=== PATIENT | female | born 1960 | race Caucasian/White ===

== ENCOUNTER 2016-07-30 09:46 | Emergency (ER) | payer MEDICAID ==
[~2016-07-30] VITALS: Ht 175.3 cm; Wt 59.0 kg
[2016-07-30 09:46] VITALS: BP 119/77; PULSE 93; RESP 19; TEMP 97.9; O2SAT 98
--- NOTE | 2016-07-30 09:50 | NUR ---
BROUGHT BACK TO BED #4 AND TRIAGED. REPORT GIVEN TO BETO
--- NOTE | 2016-07-30 10:02 | NUR ---
ER at bedside examining patient.
--- NOTE | 2016-07-30 10:03 | NUR ---
Pt presents to ED c/o R wrist 03/26 s/p mech fall.Pt h/o hypothyroid. Pt denies other med hx.Pt has reduced ROM.
[2016-07-30 11:00] VITALS: BP 117/75; PULSE 89; RESP 19; TEMP 97.9; O2SAT 98
--- NOTE | 2016-07-30 11:00 | NUR ---
Patient given written and verbal discharge instructions and verbalizes understanding. ER MD discussed with patient the results and treatment provided. Patient in stable condition. ID arm band removed. Rx of norco given. Patient educated on pain management and to follow up with PMD. Pain Scale 0/10. Opportunity for questions provided and answered.
== END 2016-07-30 11:00 | disposition home or self-care (01) ==
LOC: SED 09:46
DX: S83.91XA Sprain of unspecified site of right knee, initial encounter (principal); W19.XXXA Unspecified fall, initial encounter; Y93.89 Activity, other specified; Y92.89 Other specified places as the place of occurrence of the external cause; Y99.8 Other external cause status
CPT/HCPCS: 99284

== ENCOUNTER 2016-08-03 08:23 | Emergency (ER) | payer MEDICAID ==
[~2016-08-03] VITALS: Ht 175.3 cm; Wt 59.0 kg
[2016-08-03 09:02] VITALS: BP 126/87; PULSE 83; RESP 16; TEMP 97.3; O2SAT 95
--- NOTE | 2016-08-03 09:30 | NUR ---
Placed in room 4 . To gown for exam. Side rails up.
--- NOTE | 2016-08-03 09:40 | NUR ---
ER at bedside examining patient.
--- NOTE | 2016-08-03 09:49 | NUR ---
here for following and repeating xay of right wrist. right wrist mild swelling,tenderness.
--- NOTE | 2016-08-03 10:01 | NUR ---
Dr. Tavera at bedside, discussed chronic pain management, CURES report and that she has an appointment with PCP on Saturday. Patient agrees to have PCP manage her pain.
--- NOTE | 2016-08-03 10:15 | NUR ---
Patient given written and verbal discharge instructions and verbalizes understanding. ER MD discussed with patient the results and treatment provided. Given copies of tests performed in ER. Patient in stable condition. ID arm band removed. No Rx given, patient will follow with PCP. Patient educated on pain management and chronic opiod use. Pain Scale 5/10. Opportunity for questions provided and answered.
[2016-08-03 10:17] VITALS: BP 126/84; PULSE 77; RESP 16; TEMP 98; O2SAT 98
== END 2016-08-03 10:15 | disposition home or self-care (01) ==
LOC: SED 08:25
DX: S63.501A Unspecified sprain of right wrist, initial encounter (principal); W01.10XA Fall on same level from slipping, tripping and stumbling with subsequent striking against unspecified object, initial encounter; Y93.89 Activity, other specified; Y92.89 Other specified places as the place of occurrence of the external cause; Y99.8 Other external cause status
CPT/HCPCS: 99284

== ENCOUNTER 2017-05-15 21:17 | Emergency (ER) | payer MEDICAID ==
[~2017-05-15] VITALS: Ht 175.3 cm; Wt 59.0 kg
[2017-05-15 21:29] VITALS: BP_SYST 142
[2017-05-15 22:10] LABS: BASOPHILS % (AUTO) 0.8 % (0.0-2.0); EOSINOPHILS # (AUTO) 0.1 K/uL (0.0-0.4); EOSINOPHILS % (AUTO) 1.9 % (0.0-4.0); HEMOGLOBIN 13.7 g/dL (12.0-16.0); LYMPHOCYTES # (AUTO) 3.1 K/uL (1.0-5.5); LYMPHOCYTES % (AUTO) 50.2 % (20.5-51.5); MEAN CORPUSCULAR HEMOGLOBIN 33 pg (27-31); MEAN CORPUSCULAR HGB CONC 33 % (32-36); MEAN CORPUSCULAR VOLUME 102 fL (79.0-98.0); MONOCYTES # (AUTO) 0.4 K/uL (0.0-1.0); MONOCYTES % (AUTO) 6.2 % (1.7-9.3); NEUTROPHILS # (AUTO) 2.5 K/uL (1.8-7.7); NEUTROPHILS % (AUTO) 40.9 % (40.0-70.0); PLATELET COUNT (AUTO) 244 K/uL (130-430); RED CELL DISTRIBUTION WIDTH 13.5 % (9.0-15.0); WHITE BLOOD COUNT (AUTO) 6.1 K/uL (4.8-10.8)
[2017-05-15 22:17] LABS: CALCIUM 8.8 mg/dL (8.4-11.0); CREATININE 0.68 mg/dL (0.55-1.30); POTASSIUM 3.3 mmol/L (3.5-5.1)
[2017-05-15 22:23] LABS: ALBUMIN 4.6 g/dL (3.4-4.8); TOTAL BILIRUBIN 0.3 mg/dL (0.0-1.0)
[2017-05-15] MEDS ORDERED: FOLIC ACID 5 MG/ML VIAL IV ONE (22:33)
[2017-05-15] MEDS ORDERED: MVI 10 ML VIAL IV ONE ×2 (22:33→22:38)
[2017-05-15] MEDS ORDERED: THIAMINE HCL 100 MG/ML VIAL ONE (22:33)
[2017-05-15] MEDS ORDERED: MAGNESIUM SULFATE 1 GM/2 ML VIAL ONE (22:33)
[2017-05-15] MEDS: FOLIC ACID 1 MG, THIAMINE HCL 100 MG, MAGNESIUM SULFATE 1 GM, MVI 10 ML in NACL 0.9% 1,... IV ONE (22:47)
[2017-05-16] MEDS: KETOROLAC TROMETHAMINE 30 MG VIAL IVP ONE (00:20)
[2017-05-16] MEDS: NACL 0.9% 1,000 ML IV ONE (02:09)
[2017-05-16 02:11] VITALS: BP_SYST 136
== END 2017-05-16 02:15 | disposition left against medical advice (07) ==
LOC: SED 21:17
DX: F10.129 Alcohol abuse with intoxication, unspecified (principal); R03.0 Elevated blood-pressure reading, without diagnosis of hypertension; Z53.20 Procedure and treatment not carried out because of patient's decision for unspecified reasons; Y90.8 Blood alcohol level of 240 mg/100 ml or more
CPT/HCPCS: 36415; 80053; 85025; 96365; 96366; 96375; 99285; G0482; J1885; J3411; J3475; J3490; J7030 ×2

== ENCOUNTER 2017-09-14 20:35 | Inpatient (IN) | payer MEDICAID ==
[~2017-09-14] VITALS: Ht 167.6 cm; Wt 70.8 kg
[2017-09-14 20:40] VITALS: BP_SYST 114
[2017-09-14] MEDS ORDERED: NACL 0.9% 1,000 ML IV ONE (20:45)
[2017-09-14] MEDS ORDERED: THIAMINE HCL 100 MG TABLET PO ONE (21:00)
[2017-09-14] MEDS ORDERED: ONDANSETRON HCL 4 MG/2 ML VIAL IVP ONE (21:00)
[2017-09-14] MEDS ORDERED: FOLIC ACID 1 MG TABLET PO ONE (21:00)
[2017-09-14 21:53] LABS: BILIRUBIN,URINE NEGATIVE (NEGATIVE); BLOOD, URINE 1+ (NEGATIVE); CLARITY/URINE CLEAR (CLEAR); COLOR,URINE YELLOW (YELLOW); GLUCOSE,URINE NEGATIVE (NEGATIVE); KETONES,URINE NEGATIVE (NEGATIVE); LEUKOCYTE ESTERASE ,URINE NEGATIVE (NEGATIVE); NITRITE, URINE NEGATIVE (NEGATIVE); PH,URINE 5.5 (5.0-8.0); PROTEIN URINE NEGATIVE (NEGATIVE); UROBILINOGEN,URINE 0.2 (0.2-1.0)
[2017-09-14 22:02] LABS: HEMATOCRIT 35.9 % (36-48); HEMOGLOBIN 12.4 g/dL (12.0-16.0); MEAN CORPUSCULAR HEMOGLOBIN 35 pg (27-31); MEAN CORPUSCULAR HGB CONC 35 % (32-36); MEAN CORPUSCULAR VOLUME 101 fL (79.0-98.0); PLATELET COUNT (AUTO) 197 K/uL (130-430); RED BLOOD CELL COUNT(AUTO) 3.54 MIL/uL (4.2-6.2); RED CELL DISTRIBUTION WIDTH 13.4 % (9.0-15.0); WHITE BLOOD COUNT (AUTO) 4.6 K/uL (4.8-10.8)
[2017-09-14 22:02] LABS: BACTERIA,URINE RARE /HPF (None Seen); MUCUS,URINE None Seen /LPF (None Seen); RBC,URINE 0-3 /HPF (0-3); WBC,URINE NONE SEEN /HPF (0-3)
[2017-09-14 22:15] LABS: CALCIUM 8.1 mg/dL (8.4-11.0); CREATININE 0.59 mg/dL (0.55-1.30)
[2017-09-14 22:21] LABS: ALBUMIN 3.8 g/dL (3.4-4.8); TOTAL BILIRUBIN 0.1 mg/dL (0.0-1.0)
[2017-09-14] MEDS ORDERED: ZOLPIDEM TARTRATE 5 MG TABLET PO PRN (23:00)
[2017-09-14] MEDS ORDERED: FOLIC ACID 1 MG, THIAMINE HCL 100 MG, MAGNESIUM SULFATE 1 GM, MVI 10 ML in NACL 0.9% 1,... IV ONE (23:00)
[2017-09-14] MEDS ORDERED: DOCUSATE SODIUM 100 MG CAPSULE PO PRN (23:00)
[2017-09-14] MEDS ORDERED: ACETAMINOPHEN 325 MG TABLET PO PRN (23:00)
[2017-09-14] MEDS ORDERED: MAGNESIUM SULFATE 50 ML IV PRN (23:00)
[2017-09-14] MEDS ORDERED: MORPHINE 2 MG/ML INJ. SYRINGE IVP PRN ×2 (23:00)
[2017-09-14] MEDS ORDERED: MUPIROCIN 2% TOPICAL OINTMENT 22 GM NS PRN (23:00)
[2017-09-14] MEDS ORDERED: ONDANSETRON HCL 4 MG/2 ML VIAL IVP PRN (23:00)
[2017-09-14] MEDS ORDERED: POTASSIUM CHLORIDE 20 MEQ TAB.PRT.SR PO PRN (23:00)
[2017-09-14 23:01] LABS: ATYPICAL LYMPHOCYTES % 2 % (0-0); BAND % (MANUAL) 6 % (0-6); BASOPHILS % (MANUAL) 0 % (0-2); EOSINOPHILS % (MANUAL) 1 % (0-7); LYMPHOCYTES % (MANUAL) 51 % (20-46); MONOCYTES % (MANUAL) 10 % (0-11)
[2017-09-14 23:11] VITALS: BP_SYST 101
[2017-09-14 23:36] VITALS: BP_SYST 101
[2017-09-14] MEDS ORDERED: MUPIROCIN NASAL 2% OINT. 1 GM NS PRN (23:51)
[2017-09-15] MEDS ORDERED: MAGNESIUM SULFATE 1 GM/2 ML VIAL ONE (00:18)
[2017-09-15] MEDS ORDERED: FOLIC ACID 5 MG/ML VIAL IV ONE (00:18)
[2017-09-15] MEDS ORDERED: MVI 10 ML VIAL IV ONE (00:20)
[2017-09-15] MEDS: 0.45% NS 500 ML IV SCH ×2 (00:32→04:20)
[2017-09-15 04:11] LABS: CALCIUM 8.3 mg/dL (8.4-11.0); CREATININE 0.53 mg/dL (0.55-1.30); POTASSIUM 4.3 mmol/L (3.5-5.1)
[2017-09-15] MEDS ORDERED: 0.45% NACL 1,000 ML IV SCH (07:17)
[2017-09-15 08:16] LABS: BASOPHILS # (AUTO) 0.1 K/uL (0.0-0.2); BASOPHILS % (AUTO) 1.7 % (0.0-2.0); EOSINOPHILS # (AUTO) 0.1 K/uL (0.0-0.4); EOSINOPHILS % (AUTO) 2.1 % (0.0-4.0); HEMATOCRIT 33.8 % (36-48); HEMOGLOBIN 11.3 g/dL (12.0-16.0); LYMPHOCYTES # (AUTO) 1.9 K/uL (1.0-5.5); LYMPHOCYTES % (AUTO) 55.6 % (20.5-51.5); MEAN CORPUSCULAR HEMOGLOBIN 34 pg (27-31); MEAN CORPUSCULAR HGB CONC 33 % (32-36); MEAN CORPUSCULAR VOLUME 102 fL (79.0-98.0); MONOCYTES # (AUTO) 0.4 K/uL (0.0-1.0); MONOCYTES % (AUTO) 10.7 % (1.7-9.3); NEUTROPHILS % (AUTO) 29.9 % (40.0-70.0); PLATELET COUNT (AUTO) 163 K/uL (130-430); RED BLOOD CELL COUNT(AUTO) 3.31 MIL/uL (4.2-6.2); RED CELL DISTRIBUTION WIDTH 13.5 % (9.0-15.0); WHITE BLOOD COUNT (AUTO) 3.5 K/uL (4.8-10.8)
[2017-09-15] MEDS ORDERED: MORPHINE 4 MG/ML INJ. SYRINGE IVP PRN ×2 (08:19)
[2017-09-15 08:30] VITALS: BP_SYST 119
[2017-09-15] MEDS ORDERED: FOLIC ACID 1 MG, THIAMINE HCL 100 MG, MAGNESIUM SULFATE 1 GM, MVI 10 ML in NACL 0.9% 1,... IV ONE (09:00)
[2017-09-15] MEDS ORDERED: HEPARIN SODIUM,PORCINE 5000 UNITS/ML VIAL SUBCUT SCH (09:00)
[2017-09-15 09:53] VITALS: BP_SYST 119
== END 2017-09-15 10:35 | disposition home or self-care (01) | DRG 775 ==
LOC: SED 20:35 → SMU 22:45
PROVIDERS: ADMIT General Practice; ATTEND General Practice
DX: F10.220 Alcohol dependence with intoxication, uncomplicated (principal); E87.0 Hyperosmolality and hypernatremia; S09.90XA Unspecified injury of head, initial encounter; D70.9 Neutropenia, unspecified; E83.51 Hypocalcemia; F41.9 Anxiety disorder, unspecified; R29.6 Repeated falls; T14.8XXA Other injury of unspecified body region, initial encounter; W18.39XA Other fall on same level, initial encounter; E03.9 Hypothyroidism, unspecified; Z81.1 Family history of alcohol abuse and dependence; Z79.899 Other long term (current) drug therapy; Y93.89 Activity, other specified; Y92.89 Other specified places as the place of occurrence of the external cause; Y99.8 Other external cause status
CPT/HCPCS: 36415; 70450-TC; 73521; 73564; 80048; 80053; 81000-TC; 83735-TC; 85007; 85025; 85027; 96361; 96374; 99285; G0482; J1644; J2270; J2405; J3411; J3475; J3490; J7030

== ENCOUNTER 2017-11-28 10:05 | Emergency (ER) | payer MEDICAID ==
[~2017-11-28] VITALS: Ht 175.3 cm; Wt 61.2 kg
[2017-11-28 10:32] VITALS: BP_SYST 119
[2017-11-28 13:21] VITALS: BP_SYST 124
== END 2017-11-28 13:22 | disposition home or self-care (01) ==
LOC: SED 10:05
DX: S92.902D Unspecified fracture of left foot, subsequent encounter for fracture with routine healing (principal); E03.9 Hypothyroidism, unspecified; X58.XXXD Exposure to other specified factors, subsequent encounter
CPT/HCPCS: 73590-TC; 99284

== ENCOUNTER 2017-12-27 17:16 | Inpatient (IN) | payer MEDICAID ==
[~2017-12-27] VITALS: Ht 167.6 cm; Wt 70.8 kg
[2017-12-27 17:16] VITALS: BP_SYST 106
[2017-12-27] MEDS ORDERED: NACL 0.9% 1,000 ML IV ONE (17:30)
[2017-12-27 18:07] LABS: BASOPHILS # (AUTO) 0.1 K/uL (0.0-0.2); BASOPHILS % (AUTO) 2.8 % (0.0-2.0); EOSINOPHILS % (AUTO) 0.8 % (0.0-4.0); HEMATOCRIT 38.6 % (36-48); HEMOGLOBIN 13.1 g/dL (12.0-16.0); LYMPHOCYTES # (AUTO) 2.1 K/uL (1.0-5.5); LYMPHOCYTES % (AUTO) 48.2 % (20.5-51.5); MEAN CORPUSCULAR HEMOGLOBIN 33 pg (27-31); MEAN CORPUSCULAR HGB CONC 34 % (32-36); MEAN CORPUSCULAR VOLUME 99 fL (79.0-98.0); MONOCYTES # (AUTO) 0.2 K/uL (0.0-1.0); MONOCYTES % (AUTO) 5.5 % (1.7-9.3); NEUTROPHILS # (AUTO) 1.7 K/uL (1.8-7.7); NEUTROPHILS % (AUTO) 42.7 % (40.0-70.0); PLATELET COUNT (AUTO) 283 K/uL (130-430); RED BLOOD CELL COUNT(AUTO) 3.91 MIL/uL (4.2-6.2); RED CELL DISTRIBUTION WIDTH 13.3 % (9.0-15.0); WHITE BLOOD COUNT (AUTO) 4.1 K/uL (4.8-10.8)
[2017-12-27 18:09] LABS: CALCIUM 8.6 mg/dL (8.4-11.0); CREATININE 0.57 mg/dL (0.55-1.30); POTASSIUM 3.5 mmol/L (3.5-5.1)
[2017-12-27 18:14] LABS: ALBUMIN 3.8 g/dL (3.4-4.8); TOTAL BILIRUBIN 0.2 mg/dL (0.0-1.0)
[2017-12-27 18:21] LABS: BILIRUBIN,URINE NEGATIVE (NEGATIVE); BLOOD, URINE NEGATIVE (NEGATIVE); CLARITY/URINE CLEAR (CLEAR); COLOR,URINE YELLOW (YELLOW); GLUCOSE,URINE NEGATIVE (NEGATIVE); KETONES,URINE NEGATIVE (NEGATIVE); LEUKOCYTE ESTERASE ,URINE NEGATIVE (NEGATIVE); NITRITE, URINE NEGATIVE (NEGATIVE); PROTEIN URINE NEGATIVE (NEGATIVE); UROBILINOGEN,URINE 0.2 (0.2-1.0)
[2017-12-27] MEDS ORDERED: KETOROLAC TROMETHAMINE 30 MG VIAL IVP ONE (18:30)
[2017-12-27 18:38] LABS: BARBITURATE, URINE NEGATIVE (NEG <=200); BENZODIAZEPINE, URINE POSITIVE (NEG <=150); METHAMPHETAMINES SCREEN,URINE NEGATIVE (NEG <=500); URINE AMPHETAMINE NEGATIVE (NEG <=500); URINE METHADONE NEGATIVE (NEG <=200)
[2017-12-27 18:39] LABS: CANNABINOID, URINE NEGATIVE (NEG <=50); COCAINE, URINE NEGATIVE (NEG <=150); OPIATE, URINE POSITIVE (NEG <=100); PHENCYCLIDINE SCREEN,URINE NEGATIVE (NEG <=25); UR TRICYCLIC ANTIDEPRESSANTS NEGATIVE (NEG <=300); URINE OXYCODONE SCREEN NEGATIVE (NEG <=100); URINE PROPOXYPHENE SCREEN NEGATIVE (NEG <=300)
[2017-12-27 19:38] VITALS: BP_SYST 98
[2017-12-27] MEDS ORDERED: FOLIC ACID 1 MG, THIAMINE HCL 100 MG, MAGNESIUM SULFATE 1 GM, MVI 10 ML in NACL 0.9% 1,... IV ONE (20:00)
[2017-12-27] MEDS ORDERED: MAGNESIUM SULFATE 1 GM/2 ML VIAL ONE (20:29)
[2017-12-27] MEDS ORDERED: MVI 10 ML VIAL IV ONE (20:29)
[2017-12-27] MEDS ORDERED: FOLIC ACID 5 MG/ML VIAL IV ONE (20:29)
[2017-12-27] MEDS ORDERED: THIAMINE HCL 100 MG/ML VIAL ONE (20:29)
[2017-12-27] MEDS: LORazepam 2 MG/ML VIAL IVP PRN ×2 (20:32→23:02)
[2017-12-28 00:02] VITALS: BP_SYST 102
[2017-12-28] MEDS ORDERED: traMADol HCL HCL 50 MG TABLET (ULTRAM) ONE (00:29)
[2017-12-28] MEDS ORDERED: chlordiazePOXIDE HCL 25 MG CAPSULE ONE (00:30)
[2017-12-28] MEDS ORDERED: chlordiazePOXIDE HCL 25 MG CAPSULE PO ONE (01:00)
[2017-12-28 08:00] VITALS: BP_SYST 122
[2017-12-28] MEDS: chlordiazePOXIDE HCL 25 MG CAPSULE PO SCH ×4 (08:28→21:03)
[2017-12-28] MEDS: traMADol HCL HCL 50 MG TABLET (ULTRAM) PO PRN ×3 (08:29→21:03)
[2017-12-28 11:18] VITALS: BP_SYST 134
[2017-12-28 15:16] VITALS: BP_SYST 131
[2017-12-28] MEDS: FOLIC ACID 1 MG, THIAMINE HCL 100 MG, MAGNESIUM SULFATE 1 GM, MVI 10 ML in NACL 0.9% 1,... IV SCH (16:43)
[2017-12-28 20:00] VITALS: BP_SYST 123
[2017-12-28] MEDS: LORazepam 2 MG/ML VIAL IVP PRN (23:04)
[2017-12-29 00:03] VITALS: BP_SYST 140
[2017-12-29 06:39] LABS: BASOPHILS # (AUTO) 0.1 K/uL (0.0-0.2); BASOPHILS % (AUTO) 1.3 % (0.0-2.0); EOSINOPHILS # (AUTO) 0.1 K/uL (0.0-0.4); HEMATOCRIT 36.8 % (36-48); HEMOGLOBIN 12.5 g/dL (12.0-16.0); LYMPHOCYTES # (AUTO) 1.8 K/uL (1.0-5.5); LYMPHOCYTES % (AUTO) 43.3 % (20.5-51.5); MEAN CORPUSCULAR HEMOGLOBIN 34 pg (27-31); MEAN CORPUSCULAR HGB CONC 34 % (32-36); MEAN CORPUSCULAR VOLUME 99 fL (79.0-98.0); MONOCYTES # (AUTO) 0.5 K/uL (0.0-1.0); NEUTROPHILS % (AUTO) 43.4 % (40.0-70.0); PLATELET COUNT (AUTO) 267 K/uL (130-430); RED BLOOD CELL COUNT(AUTO) 3.73 MIL/uL (4.2-6.2); RED CELL DISTRIBUTION WIDTH 13.3 % (9.0-15.0); WHITE BLOOD COUNT (AUTO) 4.5 K/uL (4.8-10.8)
[2017-12-29 06:54] LABS: ALBUMIN 3.2 g/dL (3.4-4.8); CALCIUM 8.7 mg/dL (8.4-11.0); CREATININE 0.63 mg/dL (0.55-1.30); POTASSIUM 3.6 mmol/L (3.5-5.1); TOTAL BILIRUBIN 0.4 mg/dL (0.0-1.0)
[2017-12-29 08:02] VITALS: BP_SYST 141
[2017-12-29] MEDS: chlordiazePOXIDE HCL 25 MG CAPSULE PO SCH ×4 (08:29→20:53)
[2017-12-29] MEDS: traMADol HCL HCL 50 MG TABLET (ULTRAM) PO PRN ×3 (08:29→20:54)
[2017-12-29 11:24] VITALS: BP_SYST 116
[2017-12-29 14:49] VITALS: BP_SYST 124
[2017-12-29] MEDS: FOLIC ACID 1 MG, THIAMINE HCL 100 MG, MAGNESIUM SULFATE 1 GM, MVI 10 ML in NACL 0.9% 1,... IV SCH (16:09)
[2017-12-29 20:00] VITALS: BP_SYST 126
[2017-12-30 01:46] VITALS: BP_SYST 144
[2017-12-30 08:00] VITALS: BP_SYST 129
[2017-12-30] MEDS: chlordiazePOXIDE HCL 25 MG CAPSULE PO SCH ×4 (08:45→21:40)
[2017-12-30] MEDS: traMADol HCL HCL 50 MG TABLET (ULTRAM) PO PRN ×3 (08:47→21:40)
[2017-12-30 11:06] VITALS: BP_SYST 131
[2017-12-30] MEDS: FOLIC ACID 1 MG, THIAMINE HCL 100 MG, MAGNESIUM SULFATE 1 GM, MVI 10 ML in NACL 0.9% 1,... IV SCH (11:33)
[2017-12-30 15:18] VITALS: BP_SYST 131
[2017-12-30 20:05] VITALS: BP_SYST 132
[2017-12-30] MEDS: HALOPERIDOL 1 MG TABLET (HALDOL) PO SCH (21:40)
[2017-12-30] MEDS: LORazepam 2 MG/ML VIAL IVP PRN (23:40)
[2017-12-31 01:18] VITALS: BP_SYST 128
[2017-12-31 08:00] VITALS: BP_SYST 115
[2017-12-31] MEDS: traMADol HCL HCL 50 MG TABLET (ULTRAM) PO PRN (08:38)
[2017-12-31] MEDS: HALOPERIDOL 1 MG TABLET (HALDOL) PO SCH (08:38)
[2017-12-31] MEDS: chlordiazePOXIDE HCL 25 MG CAPSULE PO SCH ×2 (08:38→14:45)
[2017-12-31 11:24] VITALS: BP_SYST 125
[2017-12-31 15:03] VITALS: BP_SYST 111
[2017-12-31] MEDS: FOLIC ACID 1 MG, THIAMINE HCL 100 MG, MAGNESIUM SULFATE 1 GM, MVI 10 ML in NACL 0.9% 1,... IV SCH (16:15)
[2017-12-31 16:25] VITALS: BP_SYST 111
[2017-12-31] MEDS ORDERED: HAL2 PO (16:33)
[2017-12-31] MEDS ORDERED: DICL75TA5 PO (16:34)
== END 2017-12-31 17:15 | disposition home health service (06) | DRG 773 ==
LOC: SED 17:16 → STU 18:51 → SMU 12-29 15:11
PROVIDERS: ADMIT Internal Medicine; ATTEND Internal Medicine
DX: F10.129 Alcohol abuse with intoxication, unspecified (principal); F11.90 Opioid use, unspecified, uncomplicated; G92 Toxic encephalopathy; E44.1 Mild protein-calorie malnutrition; F23 Brief psychotic disorder; M25.572 Pain in left ankle and joints of left foot; E03.9 Hypothyroidism, unspecified; F19.90 Other psychoactive substance use, unspecified, uncomplicated; Y90.9 Presence of alcohol in blood, level not specified; Z87.81 Personal history of (healed) traumatic fracture; Z68.25 Body mass index [BMI] 25.0-25.9, adult
CPT/HCPCS: 36415; 80053; 80307; 81003; 85025; 96361; 96374; 97110-GP; 97116-GP; 97530-GP; 99285; G0482; J1885; J2060; J3411; J3475; J3490; J7030

== ENCOUNTER 2018-03-04 16:38 | Emergency (ER) | payer MEDICAID ==
[~2018-03-04] VITALS: Ht 175.3 cm; Wt 72.6 kg
[~2018-03-04 16:38] MED LIST: DICL75TA5 PO; HAL2 PO
[2018-03-04 16:39] VITALS: BP_SYST 130
[2018-03-04] MEDS ORDERED: NACL 0.9% 1,000 ML IV ONE (17:15)
[2018-03-04] MEDS ORDERED: DIPHENHYDRAMINE INJ 50 MG/ML VIAL IVP ONE (17:15)
[2018-03-04 17:32] LABS: HEMATOCRIT 40.1 % (36-48); HEMOGLOBIN 13.4 g/dL (12.0-16.0); MEAN CORPUSCULAR HEMOGLOBIN 34 pg (27-31); MEAN CORPUSCULAR HGB CONC 33 % (32-36); MEAN CORPUSCULAR VOLUME 101 fL (79.0-98.0); PLATELET COUNT (AUTO) 351 K/uL (130-430); RED BLOOD CELL COUNT(AUTO) 3.98 MIL/uL (4.2-6.2); RED CELL DISTRIBUTION WIDTH 15.4 % (9.0-15.0)
[2018-03-04 17:43] LABS: CREATININE 0.53 mg/dL (0.55-1.30); POTASSIUM 3.9 mmol/L (3.5-5.1)
[2018-03-04 17:47] LABS: ALBUMIN 4.2 g/dL (3.4-4.8); TOTAL BILIRUBIN 0.2 mg/dL (0.0-1.0)
[2018-03-04 18:00] LABS: BAND % (MANUAL) 1 % (0-6); BASOPHILS % (MANUAL) 0 % (0-2); EOSINOPHILS % (MANUAL) 1 % (0-7); LYMPHOCYTES % (MANUAL) 65 % (20-46); MONOCYTES % (MANUAL) 8 % (0-11)
[2018-03-04 18:01] LABS: ATYPICAL LYMPHOCYTES % 5 % (0-0)
[2018-03-04 21:04] VITALS: BP_SYST 119
== END 2018-03-04 21:04 | disposition home or self-care (01) ==
LOC: SED 16:38
DX: F10.129 Alcohol abuse with intoxication, unspecified (principal); R03.0 Elevated blood-pressure reading, without diagnosis of hypertension; E03.9 Hypothyroidism, unspecified
CPT/HCPCS: 36415; 80053; 85007; 85027; 96374; 99284; G0482; J1200; J7030; 96361

== ENCOUNTER 2018-03-05 18:57 | Emergency (ER) | payer MEDICAID ==
[~2018-03-05] VITALS: Ht 175.3 cm; Wt 72.6 kg
[2018-03-05 18:58] VITALS: BP_SYST 128
[2018-03-05] MEDS ORDERED: ONDANSETRON HCL 4 MG/2 ML VIAL IVP ONE (20:45)
[2018-03-05] MEDS ORDERED: NACL 0.9% 1,000 ML IV ONE ×2 (20:45→21:15)
[2018-03-05 21:33] LABS: CALCIUM 9.2 mg/dL (8.4-11.0); CREATININE 0.66 mg/dL (0.55-1.30); POTASSIUM 3.9 mmol/L (3.5-5.1)
[2018-03-05 21:38] LABS: ALBUMIN 4.4 g/dL (3.4-4.8); TOTAL BILIRUBIN 0.2 mg/dL (0.0-1.0)
[2018-03-05 21:44] LABS: BASOPHILS # (AUTO) 0.1 K/uL (0.0-0.2); BASOPHILS % (AUTO) 1.9 % (0.0-2.0); EOSINOPHILS # (AUTO) 0.1 K/uL (0.0-0.4); HEMATOCRIT 41.6 % (36-48); LYMPHOCYTES # (AUTO) 3.1 K/uL (1.0-5.5); LYMPHOCYTES % (AUTO) 57.1 % (20.5-51.5); MEAN CORPUSCULAR HEMOGLOBIN 35 pg (27-31); MEAN CORPUSCULAR HGB CONC 34 % (32-36); MEAN CORPUSCULAR VOLUME 103 fL (79.0-98.0); MONOCYTES # (AUTO) 0.3 K/uL (0.0-1.0); NEUTROPHILS # (AUTO) 1.9 K/uL (1.8-7.7); PLATELET COUNT (AUTO) 359 K/uL (130-430); RED BLOOD CELL COUNT(AUTO) 4.05 MIL/uL (4.2-6.2); RED CELL DISTRIBUTION WIDTH 15.4 % (9.0-15.0); WHITE BLOOD COUNT (AUTO) 5.5 K/uL (4.8-10.8)
[2018-03-06 00:14] VITALS: BP_SYST 124
== END 2018-03-06 00:13 | disposition home or self-care (01) ==
LOC: SED 18:57
DX: F10.229 Alcohol dependence with intoxication, unspecified (principal); E03.9 Hypothyroidism, unspecified; R03.0 Elevated blood-pressure reading, without diagnosis of hypertension
CPT/HCPCS: 36415; 80053; 83690; 85025; 96374; 99284; J2405; J7030

== ENCOUNTER 2018-05-15 18:13 | Emergency (ER) | payer MEDICAID ==
[~2018-05-15] VITALS: Ht 165.1 cm; Wt 65.8 kg
[2018-05-15 18:18] VITALS: BP_SYST 122
--- NOTE | 2018-05-15 18:24 | NUR ---
SPOKE WITH FAMILY SHANNON MOTHER STATES THAT SHE IS UNABLE TO COME AND GET PT. PT DOES NOT HAVE ANY WAY TO GET HOME. MOTHER STATES TO CALL THE POLICE TO GIVE HER A RIDE HOME.
[2018-05-15] MEDS ORDERED: NACL 0.9% 1,000 ML IV ONE (18:30)
[2018-05-15] MEDS ORDERED: ONDANSETRON HCL 4 MG/2 ML VIAL IVP ONE (18:30)
--- NOTE | 2018-05-15 18:30 | NUR ---
Patient arrived by EMS, patient appeared intoxicated and was rolling on ground. Patient was brought to hospital for observation. Patient appears anxious and unstable with ambulation. Patient denies nausea, vomiting, and diarrhea.
--- NOTE | 2018-05-15 18:31 | NUR ---
GUTIERREZ Purcell at bedside examining patient.
[2018-05-15] MEDS ORDERED: THIAMINE HCL 100 MG/ML VIAL IM ONE (19:00)
[2018-05-15] MEDS ORDERED: LORazepam 2 MG/ML VIAL (FOR ER USE) IVP ONE (19:00)
[2018-05-15] MEDS ORDERED: FOLIC ACID 5 MG/ML VIAL IV ONE (19:00)
--- NOTE | 2018-05-15 19:10 | NUR ---
Pt in bed, alert, slurred speech, disoriented. Denies c/o pain or discomfort, no needs verbalized. VSS.
[2018-05-15 19:25] LABS: RED BLOOD CELL COUNT(AUTO) 4.31 MIL/uL (4.2-6.2)
[2018-05-15 19:26] LABS: CALCIUM 9.7 mg/dL (8.4-11.0); CREATININE 0.61 mg/dL (0.55-1.30); POTASSIUM 3.7 mmol/L (3.5-5.1)
[2018-05-15 19:33] LABS: ALBUMIN 4.4 g/dL (3.4-4.8); TOTAL BILIRUBIN 0.3 mg/dL (0.0-1.0)
[2018-05-15 19:39] LABS: HEMATOCRIT 44.2 % (36-48); HEMOGLOBIN 14.6 g/dL (12.0-16.0); MEAN CORPUSCULAR HEMOGLOBIN 34 pg (27-31); MEAN CORPUSCULAR HGB CONC 33 % (32-36); MEAN CORPUSCULAR VOLUME 103 fL (79.0-98.0); PLATELET COUNT (AUTO) 301 K/uL (130-430); RED CELL DISTRIBUTION WIDTH 13.4 % (9.0-15.0); WHITE BLOOD COUNT (AUTO) 5.3 K/uL (4.8-10.8)
[2018-05-15 20:06] LABS: BAND % (MANUAL) 2 % (0-6); BASOPHILS % (MANUAL) 0 % (0-2); EOSINOPHILS % (MANUAL) 0 % (0-7); LYMPHOCYTES % (MANUAL) 53 % (20-46); MONOCYTES % (MANUAL) 7 % (0-11)
--- NOTE | 2018-05-15 20:57 | NUR ---
Pt assisted to bedside commode to urinate and then back to bed. Denies c/o pain or discomfort. Pt still intoxicated, speech slow and slurred.
--- NOTE | 2018-05-15 21:15 | NUR ---
Pt pulled out IV and attempted to get dressed. Pressure dsg applied to PIV site, bleeding controlled. Pt exited bed with unsteady gait and became aggitated and aggressive when requested to return to [facility]. Pt reached for her walker and stated that she is leaving. Pt was again requested to the [facility], pt refused with slurred speech and delayed sentence formation. Pt became combative when attempted to assist to bed. Myself, security, classroom monitor and packing house laborer at bedside. Pt finally returned to bed.
--- NOTE | 2018-05-15 21:33 | NUR ---
Pt continues to try to get out of bed. Pt at risk for fall and harm to self. Dr. Hart notified and order received for 2 point restraint. Soft wrist restraints applied, SR up x 2, bed in low position, curtain open and in view of nurses station.
--- NOTE | 2018-05-15 22:35 | NUR ---
Pt calm and cooperative. Soft wrist restraints removed. Pt road tested, able to ambulate with steady gait with walker assistance. Taxi called for pt. Pt in bed awaiting for taxi. Denies c/o pain or discomfort, VSS, NAD.
--- NOTE | 2018-05-15 23:16 | NUR ---
Pt sitting on side of bed, calm and cooperative demeanor, VSS, NAD.
--- NOTE | 2018-05-16 00:30 | NUR ---
Sitting on side of bed, calm, cooperative, talkative. Speech is becoming more articulate. Denies c/o pain or discomfort, no needs verbalized at this time.
[2018-05-16 01:48] VITALS: BP_SYST 134
== END 2018-05-16 01:48 | disposition home or self-care (01) ==
LOC: SED 18:13
DX: F10.129 Alcohol abuse with intoxication, unspecified (principal); E03.9 Hypothyroidism, unspecified
CPT/HCPCS: 36415; 80053; 85007; 85027; 96374; 96375; 99283; G0482; J2060; J2405; J3411; J3490; J7030

== ENCOUNTER 2018-07-23 00:08 | Emergency (ER) | payer MEDICAID ==
[~2018-07-23] VITALS: Ht 175.3 cm; Wt 72.6 kg
[2018-07-23 00:14] VITALS: BP_SYST 126
[2018-07-23] MEDS ORDERED: NACL 0.9% 1,000 ML IV ONE ×2 (00:30→07:30)
[2018-07-23 01:12] LABS: BASOPHILS % (AUTO) 0.6 % (0.0-2.0); EOSINOPHILS % (AUTO) 0.2 % (0.0-4.0); HEMATOCRIT 46.9 % (36-48); HEMOGLOBIN 15.8 g/dL (12.0-16.0); LYMPHOCYTES # (AUTO) 2.6 K/uL (1.0-5.5); LYMPHOCYTES % (AUTO) 53.2 % (20.5-51.5); MEAN CORPUSCULAR HEMOGLOBIN 34 pg (27-31); MEAN CORPUSCULAR HGB CONC 34 % (32-36); MEAN CORPUSCULAR VOLUME 100 fL (79.0-98.0); MONOCYTES # (AUTO) 0.3 K/uL (0.0-1.0); NEUTROPHILS # (AUTO) 2.1 K/uL (1.8-7.7); PLATELET COUNT (AUTO) 235 K/uL (130-430)
[2018-07-23 01:15] LABS: ANION GAP 15 (5-15); CALCIUM 8.2 mg/dL (8.4-11.0); CHLORIDE 107 mmol/L (98-107); CREATININE 0.53 mg/dL (0.55-1.30); GLUCOSE 99 mg/dL (70-99); POTASSIUM 3.7 mmol/L (3.5-5.1); SODIUM SERUM 147 mmol/L (136-145); UREA NITROGEN, BLOOD 19 mg/dL (8-21)
[2018-07-23 01:16] LABS: GFR AFRICAN AMERICAN 152 mL/min (>90)
[2018-07-23 01:21] LABS: ALANINE AMINOTRANSFERASE 35 U/L (12-78); ALBUMIN 3.7 g/dL (3.4-4.8); ASPARTATE AMINOTRANSFERASE 43 U/L (10-37); TOTAL BILIRUBIN 0.2 mg/dL (0.0-1.0)
[2018-07-23 01:23] LABS: ALCOHOL, BLOOD 411 mg/dL (<10)
[2018-07-23 01:24] LABS: ACETAMINOPHEN < 1 ug/mL (1-30)
[2018-07-23 10:55] VITALS: BP_SYST 148
== END 2018-07-23 11:20 | disposition home or self-care (01) ==
LOC: SED 00:08
DX: F10.129 Alcohol abuse with intoxication, unspecified (principal); E03.9 Hypothyroidism, unspecified; Z79.899 Other long term (current) drug therapy; Y90.8 Blood alcohol level of 240 mg/100 ml or more
CPT/HCPCS: 36415; 80053; 84484; 85025; 93005; 99284; G0480; G0481; G0482; J7030

== ENCOUNTER 2019-01-13 20:50 | Inpatient (IN) | payer MEDICAID ==
[~2019-01-13] VITALS: Ht 177.8 cm; Wt 66.7 kg
[2019-01-13 20:54] VITALS: BP_SYST 97
[2019-01-13] MEDS ORDERED: NACL 0.9% 1,000 ML IV ONE (21:19)
[2019-01-13 21:29] LABS: BASOPHILS # (AUTO) 0.1 K/uL (0.0-0.2); EOSINOPHILS % (AUTO) 0.7 % (0.0-4.0); HEMOGLOBIN 13.3 g/dL (12.0-16.0); LYMPHOCYTES # (AUTO) 2.4 K/uL (1.0-5.5); LYMPHOCYTES % (AUTO) 39.6 % (20.5-51.5); MEAN CORPUSCULAR HEMOGLOBIN 35 pg (27-31); MEAN CORPUSCULAR HGB CONC 34 % (32-36); MEAN CORPUSCULAR VOLUME 103 fL (79.0-98.0); MONOCYTES # (AUTO) 0.7 K/uL (0.0-1.0); MONOCYTES % (AUTO) 10.8 % (1.7-9.3); NEUTROPHILS # (AUTO) 2.9 K/uL (1.8-7.7); NEUTROPHILS % (AUTO) 47.9 % (40.0-70.0); PLATELET COUNT (AUTO) 229 K/uL (130-430); RED BLOOD CELL COUNT(AUTO) 3.78 MIL/uL (4.2-6.2); RED CELL DISTRIBUTION WIDTH 14.1 % (9.0-15.0); WHITE BLOOD COUNT (AUTO) 6.2 K/uL (4.8-10.8)
[2019-01-13 21:59] LABS: INR 0.9 (0.8-1.2); PROTHROMBIN TIME 9.6 SECS (9.5-12.5)
[2019-01-13 22:05] LABS: CALCIUM 9.6 mg/dL (8.4-11.0); POTASSIUM 3.6 mmol/L (3.5-5.1)
[2019-01-13 22:06] LABS: CREATININE 0.59 mg/dL (0.55-1.30)
[2019-01-13 22:07] LABS: TOTAL BILIRUBIN 0.5 mg/dL (0.0-1.0)
[2019-01-13 22:08] LABS: ALBUMIN 4.3 g/dL (3.4-4.8)
[2019-01-13 22:21] LABS: BILIRUBIN,URINE NEGATIVE (NEGATIVE); BLOOD, URINE NEGATIVE (NEGATIVE); CLARITY/URINE CLEAR (CLEAR); COLOR,URINE YELLOW (YELLOW); GLUCOSE,URINE NEGATIVE (NEGATIVE); KETONES,URINE NEGATIVE (NEGATIVE); LEUKOCYTE ESTERASE ,URINE NEGATIVE (NEGATIVE); NITRITE, URINE NEGATIVE (NEGATIVE); PROTEIN URINE NEGATIVE (NEGATIVE); UROBILINOGEN,URINE 0.2 (0.2-1.0)
[2019-01-13 22:57] LABS: BARBITURATE, URINE NEGATIVE (NEG <=200); BENZODIAZEPINE, URINE POSITIVE (NEG <=150); CANNABINOID, URINE NEGATIVE (NEG <=50); COCAINE, URINE NEGATIVE (NEG <=150); METHAMPHETAMINES SCREEN,URINE NEGATIVE (NEG <=500); OPIATE, URINE NEGATIVE (NEG <=100); PHENCYCLIDINE SCREEN,URINE NEGATIVE (NEG <=25); UR TRICYCLIC ANTIDEPRESSANTS NEGATIVE (NEG <=300); URINE AMPHETAMINE NEGATIVE (NEG <=500); URINE METHADONE NEGATIVE (NEG <=200); URINE OXYCODONE SCREEN NEGATIVE (NEG <=100); URINE PROPOXYPHENE SCREEN NEGATIVE (NEG <=300)
[2019-01-14] MEDS ORDERED: THIAMINE HCL 100 MG/ML VIAL ONE ×2 (00:22→01:10)
[2019-01-14] MEDS ORDERED: MVI 10 ML VIAL IV ONE ×2 (00:23→01:10)
[2019-01-14] MEDS ORDERED: MAGNESIUM SULFATE 1 GM/2 ML VIAL ONE ×3 (00:24→01:10)
[2019-01-14] MEDS ORDERED: FOLIC ACID 1 MG, THIAMINE HCL 100 MG, MAGNESIUM SULFATE 1 GM, MVI 10 ML in NACL 0.9% 1,... IV ONE ×6 (00:45)
[2019-01-14 00:53] VITALS: BP_SYST 112
[2019-01-14] MEDS ORDERED: FOLIC ACID 5 MG/ML VIAL IV ONE (01:10)
[2019-01-14] MEDS: LORazepam 2 MG/ML VIAL IM PRN ×2 (02:26→06:09)
[2019-01-14 08:05] VITALS: BP_SYST 112
[2019-01-14] MEDS ORDERED: THIAMINE HCL 100 MG TABLET PO ONE (12:00)
[2019-01-14] MEDS: LORazepam 2 MG/ML VIAL IVP PRN ×2 (12:08→22:33)
[2019-01-14 12:42] VITALS: BP_SYST 134
[2019-01-14 16:19] VITALS: BP_SYST 106
[2019-01-14] MEDS: QUEtiapine FUMARATE 100 MG TABLET PO SCH (17:44)
[2019-01-14 19:00] VITALS: BP_SYST 110
[2019-01-14 20:00] VITALS: BP_SYST 110
[2019-01-14] MEDS: chlordiazePOXIDE HCL 25 MG CAPSULE PO SCH (21:00)
[2019-01-15] VITALS (15 sets, daily range): BP systolic 80–117
[2019-01-15] MEDS: LORazepam 2 MG/ML VIAL IVP PRN (03:30)
[2019-01-15 06:38] LABS: EOSINOPHILS # (AUTO) 0.1 K/uL (0.0-0.4); EOSINOPHILS % (AUTO) 1.3 % (0.0-4.0); MONOCYTES # (AUTO) 0.4 K/uL (0.0-1.0); NEUTROPHILS # (AUTO) 1.7 K/uL (1.8-7.7)
[2019-01-15 06:47] LABS: ALBUMIN 3.6 g/dL (3.4-4.8); CREATININE 0.68 mg/dL (0.55-1.30); POTASSIUM 4.1 mmol/L (3.5-5.1); TOTAL BILIRUBIN 0.4 mg/dL (0.0-1.0)
[2019-01-15 08:00] LABS: HEMATOCRIT 41.6 % (36-48); LYMPHOCYTES % (AUTO) 58.1 % (20.5-51.5); MEAN CORPUSCULAR HEMOGLOBIN 35 pg (27-31); MEAN CORPUSCULAR HGB CONC 34 % (32-36); MEAN CORPUSCULAR VOLUME 105 fL (79.0-98.0); MONOCYTES % (AUTO) 6.8 % (1.7-9.3); NEUTROPHILS % (AUTO) 33.3 % (40.0-70.0); PLATELET COUNT (AUTO) 247 K/uL (130-430); RED BLOOD CELL COUNT(AUTO) 3.97 MIL/uL (4.2-6.2); RED CELL DISTRIBUTION WIDTH 14.2 % (9.0-15.0); WHITE BLOOD COUNT (AUTO) 5.2 K/uL (4.8-10.8)
[2019-01-15 08:01] LABS: BASOPHILS % (AUTO) 0.5 % (0.0-2.0)
[2019-01-15] MEDS: chlordiazePOXIDE HCL 25 MG CAPSULE PO SCH ×2 (08:47→13:00)
[2019-01-15] MEDS ORDERED: THIAMINE HCL 100 MG TABLET PO SCH (09:00)
[2019-01-15] MEDS ORDERED: ETOMIDATE 20 MG/ 10 ML VIAL (AMIDATE) IVP ONE (15:04)
[2019-01-15 15:37] LABS: BASOPHILS # (AUTO) 0.1 K/uL (0.0-0.2); BASOPHILS % (AUTO) 1.2 % (0.0-2.0); EOSINOPHILS # (AUTO) 0.1 K/uL (0.0-0.4); EOSINOPHILS % (AUTO) 1.5 % (0.0-4.0); HEMATOCRIT 43.5 % (36-48); HEMOGLOBIN 14.6 g/dL (12.0-16.0); LYMPHOCYTES # (AUTO) 2.6 K/uL (1.0-5.5); LYMPHOCYTES % (AUTO) 42.9 % (20.5-51.5); MEAN CORPUSCULAR HEMOGLOBIN 35 pg (27-31); MEAN CORPUSCULAR HGB CONC 34 % (32-36); MEAN CORPUSCULAR VOLUME 105 fL (79.0-98.0); MONOCYTES # (AUTO) 0.3 K/uL (0.0-1.0); MONOCYTES % (AUTO) 4.4 % (1.7-9.3); NEUTROPHILS # (AUTO) 3.1 K/uL (1.8-7.7); PLATELET COUNT (AUTO) 241 K/uL (130-430); RED BLOOD CELL COUNT(AUTO) 4.15 MIL/uL (4.2-6.2); RED CELL DISTRIBUTION WIDTH 14.4 % (9.0-15.0); WHITE BLOOD COUNT (AUTO) 6.1 K/uL (4.8-10.8)
[2019-01-15 15:58] LABS: ALBUMIN 3.8 g/dL (3.4-4.8); CALCIUM 8.3 mg/dL (8.4-11.0); CREATININE 0.82 mg/dL (0.55-1.30); POTASSIUM 3.9 mmol/L (3.5-5.1)
[2019-01-15 16:01] LABS: TOTAL BILIRUBIN 0.1 mg/dL (0.0-1.0)
[2019-01-15] MEDS ORDERED: FOLIC ACID 1 MG, THIAMINE HCL 100 MG, MAGNESIUM SULFATE 1 GM, MVI 10 ML in NACL 0.9% 1,... IV SCH (16:30)
[2019-01-15 16:47] LABS: BILIRUBIN,URINE NEGATIVE (NEGATIVE); BLOOD, URINE NEGATIVE (NEGATIVE); CLARITY/URINE CLEAR (CLEAR); COLOR,URINE YELLOW (YELLOW); GLUCOSE,URINE NEGATIVE (NEGATIVE); KETONES,URINE NEGATIVE (NEGATIVE); LEUKOCYTE ESTERASE ,URINE NEGATIVE (NEGATIVE); NITRITE, URINE NEGATIVE (NEGATIVE); PROTEIN URINE NEGATIVE (NEGATIVE); UROBILINOGEN,URINE 0.2 (0.2-1.0)
[2019-01-15 17:11] LABS: BACTERIA,URINE FEW /HPF (None Seen); WBC,URINE 0-3 /HPF (0-3)
[2019-01-15 17:12] LABS: HYALINE CASTS, URINE 0-10 /LPF (None Seen); MUCUS,URINE 2+ /LPF (None Seen)
[2019-01-15] MEDS: MAGNESIUM SULFATE/D5W 100 ML IV SCH (17:48)
[2019-01-15] MEDS: THIAMINE HCL 100 MG, MVI 10 ML in NACL 0.9% 1,000 ML IV SCH (17:49)
[2019-01-15] MEDS: FOLIC ACID 5 MG/ML VIAL IV SCH (17:49)
[2019-01-15] MEDS: QUEtiapine FUMARATE 100 MG TABLET PO SCH (18:00)
[2019-01-15] MEDS ORDERED: 0.45% NACL 1,000 ML IV SCH (20:00)
[2019-01-15] MEDS: FAMOTIDINE PF 20 MG/2 ML VIAL IVP SCH (20:40)
[2019-01-16] VITALS (29 sets, daily range): BP systolic 90–174
[2019-01-16 06:16] LABS: ALBUMIN 3.3 g/dL (3.4-4.8); CALCIUM 8.4 mg/dL (8.4-11.0); CREATININE 0.52 mg/dL (0.55-1.30); POTASSIUM 3.5 mmol/L (3.5-5.1); TOTAL BILIRUBIN 0.2 mg/dL (0.0-1.0)
[2019-01-16 06:23] LABS: BASOPHILS # (AUTO) 0.1 K/uL (0.0-0.2); BASOPHILS % (AUTO) 0.8 % (0.0-2.0); EOSINOPHILS % (AUTO) 0.3 % (0.0-4.0); HEMATOCRIT 40.1 % (36-48); HEMOGLOBIN 13.7 g/dL (12.0-16.0); LYMPHOCYTES # (AUTO) 1.8 K/uL (1.0-5.5); LYMPHOCYTES % (AUTO) 17.8 % (20.5-51.5); MEAN CORPUSCULAR HEMOGLOBIN 36 pg (27-31); MEAN CORPUSCULAR HGB CONC 34 % (32-36); MEAN CORPUSCULAR VOLUME 104 fL (79.0-98.0); MONOCYTES # (AUTO) 0.5 K/uL (0.0-1.0); MONOCYTES % (AUTO) 4.8 % (1.7-9.3); NEUTROPHILS # (AUTO) 7.9 K/uL (1.8-7.7); NEUTROPHILS % (AUTO) 76.3 % (40.0-70.0); PLATELET COUNT (AUTO) 229 K/uL (130-430); RED BLOOD CELL COUNT(AUTO) 3.87 MIL/uL (4.2-6.2); RED CELL DISTRIBUTION WIDTH 14.5 % (9.0-15.0); WHITE BLOOD COUNT (AUTO) 10.3 K/uL (4.8-10.8)
[2019-01-16] MEDS: FAMOTIDINE PF 20 MG/2 ML VIAL IVP SCH ×2 (09:27→20:06)
[2019-01-16] MEDS: D5LR 1,000 ML IV SCH (10:57)
[2019-01-16] MEDS: LORazepam 2 MG/ML VIAL IVP PRN ×2 (11:54→13:16)
[2019-01-16] MEDS: MAGNESIUM SULFATE/D5W 100 ML IV SCH (16:55)
[2019-01-16] MEDS: QUEtiapine FUMARATE 100 MG TABLET PO SCH (18:25)
[2019-01-16] MEDS: THIAMINE HCL 100 MG, MVI 10 ML in NACL 0.9% 1,000 ML IV SCH (18:25)
[2019-01-16] MEDS: FOLIC ACID 5 MG/ML VIAL IV SCH (18:26)
[2019-01-17] VITALS (7 sets, daily range): BP systolic 138–148
[2019-01-17] MEDS: D5LR 1,000 ML IV SCH (05:18)
[2019-01-17 07:29] LABS: BASOPHILS % (AUTO) 0.7 % (0.0-2.0); HEMATOCRIT 36.3 % (36-48); HEMOGLOBIN 12.7 g/dL (12.0-16.0); LYMPHOCYTES # (AUTO) 1.9 K/uL (1.0-5.5); LYMPHOCYTES % (AUTO) 26.9 % (20.5-51.5); MEAN CORPUSCULAR HEMOGLOBIN 36 pg (27-31); MEAN CORPUSCULAR HGB CONC 35 % (32-36); MEAN CORPUSCULAR VOLUME 102 fL (79.0-98.0); MONOCYTES # (AUTO) 0.7 K/uL (0.0-1.0); MONOCYTES % (AUTO) 10.7 % (1.7-9.3); NEUTROPHILS # (AUTO) 4.3 K/uL (1.8-7.7); NEUTROPHILS % (AUTO) 61.7 % (40.0-70.0); PLATELET COUNT (AUTO) 182 K/uL (130-430); RED BLOOD CELL COUNT(AUTO) 3.55 MIL/uL (4.2-6.2); RED CELL DISTRIBUTION WIDTH 14.2 % (9.0-15.0)
[2019-01-17 07:49] LABS: ALBUMIN 3.2 g/dL (3.4-4.8); CALCIUM 9.1 mg/dL (8.4-11.0); CREATININE 0.6 mg/dL (0.55-1.30); PHOSPHORUS 2.5 mg/dL (2.7-4.5); POTASSIUM 3.2 mmol/L (3.5-5.1)
[2019-01-17] MEDS ORDERED: POTASSIUM CHLORIDE 20 MEQ/PKT PACKET PO ONE (09:00)
[2019-01-17] MEDS ORDERED: PIPERACILLIN/TAZO 3.375/DEX-IS 50 ML IV ONE (09:00)
[2019-01-17] MEDS: FAMOTIDINE PF 20 MG/2 ML VIAL IVP SCH (11:34)
[2019-01-17 12:42] LABS: BILIRUBIN,URINE NEGATIVE (NEGATIVE); BLOOD, URINE NEGATIVE (NEGATIVE); CLARITY/URINE CLEAR (CLEAR); COLOR,URINE YELLOW (YELLOW); GLUCOSE,URINE NEGATIVE (NEGATIVE); KETONES,URINE NEGATIVE (NEGATIVE); LEUKOCYTE ESTERASE ,URINE TRACE (NEGATIVE); NITRITE, URINE NEGATIVE (NEGATIVE); PROTEIN URINE NEGATIVE (NEGATIVE); UROBILINOGEN,URINE 0.2 (0.2-1.0)
[2019-01-17] MEDS ORDERED: chlordiazePOXIDE HCL 25 MG CAPSULE PO SCH (13:00)
[2019-01-17 14:00] LABS: BACTERIA,URINE RARE /HPF (None Seen); MUCUS,URINE 1+ /LPF (None Seen); RBC,URINE 0-3 /HPF (0-3); WBC,URINE 0-3 /HPF (0-3)
[2019-01-17] MEDS ORDERED: PIPERACILLIN/TAZO 3.375/DEX-IS 50 ML IV SCH (18:00)
[2019-01-18] VITALS (9 sets, daily range): BP systolic 115–139
== END 2019-01-17 15:50 | disposition left against medical advice (07) | DRG 280 ==
LOC: SED 20:50 → STU 23:52 → SIC 01-15 15:06
PROVIDERS: ADMIT Internal Medicine; ATTEND Internal Medicine
PROC: 5A1945Z Respiratory Ventilation, 24-96 Consecutive Hours (ICD-10-PCS; principal; 2019-01-13)
PROC: 0BH17EZ Insertion of Endotracheal Airway into Trachea, Via Natural or Artificial Opening (ICD-10-PCS; 2019-01-13)
DX: K70.10 Alcoholic hepatitis without ascites (principal); J96.01 Acute respiratory failure with hypoxia; R40.20 Unspecified coma; E03.9 Hypothyroidism, unspecified; F10.229 Alcohol dependence with intoxication, unspecified; E87.6 Hypokalemia; E44.1 Mild protein-calorie malnutrition; Y90.8 Blood alcohol level of 240 mg/100 ml or more; Z79.899 Other long term (current) drug therapy; Z87.81 Personal history of (healed) traumatic fracture; Z91.19 Patient's noncompliance with other medical treatment and regimen; Z68.21 Body mass index [BMI] 21.0-21.9, adult
CPT/HCPCS: 36415; 36600; 71045; 80053; 80307; 81000-TC; 81003; 82140-TC; 82803-TC; 82962; 83735-TC; 83880; 84100-TC; 84484; 85025; 85610-TC; 85730-TC; 87081; 87086; 87205-TC; 93005; 94002; 94003; 94640; 96361; 96365; 99285; G0378; G0482; J2060; J2543; J3411; J3475; J3490; J7030; J7120

== ENCOUNTER 2019-04-28 15:29 | Inpatient (IN) | payer MEDICAID ==
[~2019-04-28] VITALS: Ht 172.7 cm; Wt 55.8 kg
[2019-04-28 15:32] VITALS: BP_SYST 118
[2019-04-28] MEDS ORDERED: NACL 0.9% 2,000 ML IV ONE (15:45)
[2019-04-28] MEDS ORDERED: THIAMINE HCL 100 MG/ML VIAL IM ONE (15:45)
[2019-04-28] MEDS ORDERED: FOLIC ACID 5 MG/ML VIAL IV ONE ×2 (15:45→22:02)
[2019-04-28 16:20] LABS: BASOPHILS # (AUTO) 0.1 K/uL (0.0-0.2); BASOPHILS % (AUTO) 1.2 % (0.0-2.0); EOSINOPHILS % (AUTO) 0.4 % (0.0-4.0); HEMATOCRIT 39.7 % (36-48); HEMOGLOBIN 13.7 g/dL (12.0-16.0); LYMPHOCYTES # (AUTO) 2.6 K/uL (1.0-5.5); LYMPHOCYTES % (AUTO) 60.7 % (20.5-51.5); MEAN CORPUSCULAR HEMOGLOBIN 35 pg (27-31); MEAN CORPUSCULAR HGB CONC 35 % (32-36); MEAN CORPUSCULAR VOLUME 101 fL (79.0-98.0); MONOCYTES # (AUTO) 0.3 K/uL (0.0-1.0); MONOCYTES % (AUTO) 6.1 % (1.7-9.3); NEUTROPHILS # (AUTO) 1.3 K/uL (1.8-7.7); NEUTROPHILS % (AUTO) 31.6 % (40.0-70.0); PLATELET COUNT (AUTO) 235 K/uL (130-430); RED BLOOD CELL COUNT(AUTO) 3.94 MIL/uL (4.2-6.2); WHITE BLOOD COUNT (AUTO) 4.3 K/uL (4.8-10.8)
[2019-04-28] MEDS ORDERED: LORazepam 2 MG/ML VIAL IVP ONE (16:30)
[2019-04-28 16:33] LABS: CALCIUM 8.4 mg/dL (8.4-11.0); CREATININE 0.67 mg/dL (0.55-1.30); POTASSIUM 3.7 mmol/L (3.5-5.1)
[2019-04-28 16:40] LABS: PHOSPHORUS 4.1 mg/dL (2.7-4.5); TOTAL BILIRUBIN 0.2 mg/dL (0.0-1.0)
[2019-04-28 16:49] LABS: BILIRUBIN,URINE NEGATIVE (NEGATIVE); BLOOD, URINE NEGATIVE (NEGATIVE); COLOR,URINE YELLOW (YELLOW); GLUCOSE,URINE NEGATIVE (NEGATIVE); KETONES,URINE NEGATIVE (NEGATIVE); LEUKOCYTE ESTERASE ,URINE NEGATIVE (NEGATIVE); NITRITE, URINE NEGATIVE (NEGATIVE); PROTEIN URINE NEGATIVE (NEGATIVE); UROBILINOGEN,URINE 0.2 (0.2-1.0)
[2019-04-28 16:52] LABS: CLARITY/URINE SLIGHTLY HAZY (CLEAR)
[2019-04-28 17:13] LABS: BARBITURATE, URINE NEGATIVE (NEG <=200); BENZODIAZEPINE, URINE POSITIVE (NEG <=150); CANNABINOID, URINE NEGATIVE (NEG <=50); COCAINE, URINE NEGATIVE (NEG <=150); METHAMPHETAMINES SCREEN,URINE NEGATIVE (NEG <=500); OPIATE, URINE NEGATIVE (NEG <=100); PHENCYCLIDINE SCREEN,URINE NEGATIVE (NEG <=25); UR TRICYCLIC ANTIDEPRESSANTS NEGATIVE (NEG <=300); URINE AMPHETAMINE NEGATIVE (NEG <=500); URINE METHADONE NEGATIVE (NEG <=200); URINE OXYCODONE SCREEN NEGATIVE (NEG <=100); URINE PROPOXYPHENE SCREEN NEGATIVE (NEG <=300)
[2019-04-28 18:18] VITALS: BP_SYST 103
[2019-04-28] MEDS ORDERED: NACL 0.9% 1,000 ML IV SCH (19:06)
[2019-04-28] MEDS ORDERED: ACETAMINOPHEN 325 MG TABLET PO PRN (19:15)
[2019-04-28] MEDS ORDERED: MORPHINE 2 MG/ML INJ. SYRINGE IVP PRN (19:15)
[2019-04-28] MEDS ORDERED: ONDANSETRON HCL 4 MG/2 ML VIAL IVP PRN (19:15)
[2019-04-28] MEDS ORDERED: ALBUTEROL SULFATE 0.083% 2.5 MG/3 ML VIAL.NEB INH PRN (19:15)
[2019-04-28] MEDS ORDERED: LORazepam 2 MG/ML VIAL IVP PRN (19:15)
[2019-04-28 20:00] VITALS: BP_SYST 110
[2019-04-28] MEDS ORDERED: MAGNESIUM SULFATE 1 GM, THIAMINE HCL 100 MG in NS 100 ML IV SCH (20:00)
[2019-04-28] MEDS ORDERED: FOLIC ACID 1 MG, MVI 10 ML in NACL 0.9% 1,000 ML IV SCH (20:00)
[2019-04-28 21:13] VITALS: BP_SYST 117
[2019-04-28] MEDS ORDERED: LORazepam 2 MG/ML VIAL IVP SCH (21:45)
[2019-04-28] MEDS ORDERED: MAGNESIUM SULFATE 1 GM/2 ML VIAL ONE (22:01)
[2019-04-28] MEDS ORDERED: THIAMINE HCL 100 MG/ML VIAL ONE (22:01)
[2019-04-28] MEDS ORDERED: MVI 10 ML VIAL IV ONE (22:02)
[2019-04-29] MEDS: MORPHINE 4 MG/ML INJ. SYRINGE IVP PRN ×2 (00:18→05:49)
[2019-04-29 00:22] VITALS: BP_SYST 103
[2019-04-29 07:18] LABS: HEMATOCRIT 33.5 % (36-48); HEMOGLOBIN 11.6 g/dL (12.0-16.0); MEAN CORPUSCULAR HEMOGLOBIN 35 pg (27-31); MEAN CORPUSCULAR HGB CONC 35 % (32-36); MEAN CORPUSCULAR VOLUME 102 fL (79.0-98.0); PLATELET COUNT (AUTO) 184 K/uL (130-430); RED BLOOD CELL COUNT(AUTO) 3.28 MIL/uL (4.2-6.2); RED CELL DISTRIBUTION WIDTH 14.1 % (9.0-15.0); WHITE BLOOD COUNT (AUTO) 4.2 K/uL (4.8-10.8)
[2019-04-29 07:27] LABS: ALBUMIN 3.1 g/dL (3.4-4.8); CALCIUM 7.7 mg/dL (8.4-11.0); CREATININE 0.48 mg/dL (0.55-1.30); POTASSIUM 3.8 mmol/L (3.5-5.1); TOTAL BILIRUBIN 0.3 mg/dL (0.0-1.0)
[2019-04-29 07:50] VITALS: BP_SYST 137
[2019-04-29 09:47] LABS: BAND % (MANUAL) 0 % (0-6); LYMPHOCYTES % (MANUAL) 57 % (20-46)
[2019-04-29 09:48] LABS: ATYPICAL LYMPHOCYTES % 5 % (0-0); BASOPHILS % (MANUAL) 0 % (0-2); EOSINOPHILS % (MANUAL) 2 % (0-7); MONOCYTES % (MANUAL) 10 % (0-11)
== END 2019-04-29 09:25 | disposition left against medical advice (07) | DRG 770 ==
LOC: SED 15:29 → STU 17:26
PROVIDERS: ADMIT Internal Medicine Hospice and Palliative Medicine; ATTEND Internal Medicine Hospice and Palliative Medicine
DX: F10.120 Alcohol abuse with intoxication, uncomplicated (principal); Z78.1 Physical restraint status; E03.9 Hypothyroidism, unspecified; Z53.29 Procedure and treatment not carried out because of patient's decision for other reasons; Z79.899 Other long term (current) drug therapy
CPT/HCPCS: 36415; 80053; 80307; 81003; 83735-TC; 84100-TC; 85007; 85025; 85027; G0378; G0482; J2060; J2270; J3411; J3475; J3490; J7030

== ENCOUNTER 2019-08-04 18:21 | Emergency (ER) | payer MEDICAID ==
[~2019-08-04] VITALS: Ht 175.3 cm; Wt 72.6 kg
[2019-08-04 18:28] VITALS: BP_SYST 106
--- NOTE | 2019-08-04 18:33 | NUR ---
Patient to ER bed 7 to gown for evaluation. Side rails up. Report given to HAYDER Arellano.
--- NOTE | 2019-08-04 18:34 | NUR ---
ER at bedside examining patient.
--- NOTE | 2019-08-04 18:42 | NUR ---
PATIENT BROUGHT IN S FOR ETOH INTOXICATION. PATIENT WAS PICKED UP [employer]. PATIENT IS USUALLY IN WHEELCHAIR . PATIENT HAS SLURRED SPEECH. REPORTS DRINKING "A LOT OF WINE." DENIES ANY PAIN. NO OTHER COMPLAINTS/INJURIES PER PATIENT OR NOTED. WILL CONTINUE TO MONITOR.
[2019-08-04] MEDS ORDERED: NACL 0.9% 1,000 ML IV ONE (18:45)
--- NOTE | 2019-08-04 19:15 | NUR ---
Report received from dayshift RN at bedside. Pt in bed, alert but confused due to ETOH. No s/s of distress noted. IV site C/D/I. Will continue to monitor.
--- NOTE | 2019-08-04 21:30 | NUR ---
Pt more alert and oriented. Agitated at times, but compliant. Will continue to monitor.
[2019-08-04 23:53] VITALS: BP_SYST 124
--- NOTE | 2019-08-04 23:53 | NUR ---
Patient given written and verbal discharge instructions and verbalizes understanding. ER MD discussed with patient the results and treatment provided. Patient in stable condition. ID arm band removed. Patient educated on pain management and to follow up with PMD. Pain Scale 0/10. Opportunity for questions provided and answered. Medication side effect fact sheet provided. Pt picked up by Taxi services.
== END 2019-08-04 23:53 | disposition home or self-care (01) ==
LOC: SED 18:21
DX: F10.129 Alcohol abuse with intoxication, unspecified (principal); Y90.9 Presence of alcohol in blood, level not specified
CPT/HCPCS: 99283; J7030

== ENCOUNTER 2020-02-28 12:14 | Emergency (ER) | payer MEDICAID ==
[~2020-02-28] VITALS: Ht 172.7 cm; Wt 74.8 kg
[2020-02-28 12:22] VITALS: BP_SYST 119
--- NOTE | 2020-02-28 12:22 | NUR ---
Patient to ER bed 4 to gown for evaluation. Side rails up.
--- NOTE | 2020-02-28 12:34 | NUR ---
pt arrives via [facility]. Pt was found by her neighbors lying in her backyard. Reportedly the pt feel of her wheelchair and admits to drinking wine. A bottle of Haldol and cymbalt were found on the pt. Pt is currently AAOx1 and attmepting to get OOB.
--- NOTE | 2020-02-28 12:45 | NUR ---
ER at bedside examining patient.
--- NOTE | 2020-02-28 13:00 | NUR ---
PT MOVED TO ER BED 2.
--- NOTE | 2020-02-28 15:10 | NUR ---
PT FROM BED 2 TO BED 6
[2020-02-28] MEDS ORDERED: LORazepam 2 MG/ML VIAL IM ONE (15:30)
--- NOTE | 2020-02-28 15:41 | NUR ---
PT IS SLEEPING IN BED
[2020-02-28 16:49] VITALS: BP_SYST 119
--- NOTE | 2020-02-28 16:50 | NUR ---
pt is awake and able to state why she is [facility] the hopsital. Road test done. Pt amulated at her baseline.
--- NOTE | 2020-02-28 16:51 | NUR ---
Patient given written and verbal discharge instructions and verbalizes understanding. ER MD discussed with patient the results and treatment provided. Patient in stable condition. ID arm band removed. Patient educated on pain management and to follow up with PMD. Pain Scale 0/10. Opportunity for questions provided and answered. Medication side effect fact sheet provided.
== END 2020-02-28 16:51 | disposition home or self-care (01) ==
LOC: SED 12:14
DX: F10.229 Alcohol dependence with intoxication, unspecified (principal); E03.9 Hypothyroidism, unspecified
CPT/HCPCS: 99283

== ENCOUNTER 2022-03-19 17:21 | Observation (INO) | payer MEDICAID ==
[~2022-03-19] VITALS: Ht 177.8 cm; Wt 68.0 kg
[2022-03-19 17:35] VITALS: BP_SYST 123
[2022-03-19 19:26] LABS: BASOPHILS # (AUTO) 0.1 K/uL (0.0-0.2); BASOPHILS % (AUTO) 1.1 % (0.0-2.0); EOSINOPHILS % (AUTO) 0.8 % (0.0-4.0); HEMATOCRIT 37.7 % (36-48); LYMPHOCYTES # (AUTO) 2.4 K/uL (1.0-5.5); LYMPHOCYTES % (AUTO) 49.4 % (20.5-51.5); MEAN CORPUSCULAR VOLUME 101 fL (79.0-98.0); MONOCYTES # (AUTO) 0.4 K/uL (0.0-1.0); NEUTROPHILS # (AUTO) 1.9 K/uL (1.8-7.7); NEUTROPHILS % (AUTO) 39.7 % (40.0-70.0); PLATELET COUNT (AUTO) 263 K/uL (130-430); RED BLOOD CELL COUNT(AUTO) 3.74 MIL/uL (4.2-6.2); RED CELL DISTRIBUTION WIDTH 16.5 % (9.0-15.0); WHITE BLOOD COUNT (AUTO) 4.9 K/uL (4.8-10.8)
[2022-03-19 19:36] LABS: ACETONE, SERUM NEGATIVE (NEGATIVE)
[2022-03-19 19:46] LABS: POTASSIUM 3.5 mmol/L (3.5-5.1)
[2022-03-19 19:47] LABS: ANION GAP 10 (5-15); CALCIUM 8.7 mg/dL (8.4-11.0); CHLORIDE 104 mmol/L (98-107); GFR AFRICAN AMERICAN 109 mL/min (>90); GLUCOSE 98 mg/dL (70-99); UREA NITROGEN, BLOOD 8 mg/dL (8-21)
[2022-03-19 19:56] LABS: TOTAL BILIRUBIN 0.3 mg/dL (0.0-1.0)
[2022-03-19 19:57] LABS: ALANINE AMINOTRANSFERASE 20 U/L (12-78); ALBUMIN 3.9 g/dL (3.4-4.8); ALCOHOL, BLOOD 367 mg/dL (<10); AMYLASE 72 U/L (0-100); ASPARTATE AMINOTRANSFERASE 25 U/L (10-37); LIPASE 124 U/L (73-393)
[2022-03-20] MEDS ORDERED: LORazepam 2 MG/ML VIAL IM ONE (02:00)
[2022-03-20] MEDS ORDERED: LORazepam 2 MG/ML VIAL ONE (02:07)
[2022-03-20] MEDS ORDERED: LORazepam 2 MG/ML VIAL IVP ONE (09:15)
[2022-03-20] MEDS ORDERED: FOLIC ACID 1 MG, THIAMINE HCL 100 MG, MAGNESIUM SULFATE 1 GM, MVI 10 ML in NACL 0.9% 1,... IV ONE (10:00)
[2022-03-20] MEDS ORDERED: FOLIC ACID 1 MG, MVI 10 ML in NACL 0.9% 1,000 ML IV ONE (10:15)
[2022-03-20] MEDS ORDERED: THIAMINE HCL 100 MG, MAGNESIUM SULFATE 1 GM in NS 100 ML IV ONE (10:15)
[2022-03-20] MEDS: LORazepam 2 MG/ML VIAL IVP PRN ×2 (15:26→21:31)
[2022-03-20 20:00] VITALS: BP_SYST 131
[2022-03-20] MEDS: chlordiazePOXIDE HCL 25 MG CAPSULE PO SCH (21:29)
[2022-03-21 01:15] VITALS: BP_SYST 136
[2022-03-21] MEDS ORDERED: ACETAMINOPHEN 650 MG/20.3 ML UDC GT PRN (03:30)
[2022-03-21 04:00] VITALS: BP_SYST 132
[2022-03-21] MEDS: LORazepam 2 MG/ML VIAL IVP PRN ×2 (04:08→08:55)
[2022-03-21 08:10] VITALS: BP_SYST 130
[2022-03-21] MEDS: chlordiazePOXIDE HCL 25 MG CAPSULE PO SCH (08:35)
[2022-03-21 10:51] VITALS: BP_SYST 126
[2022-03-21 12:00] VITALS: BP_SYST 129
== END 2022-03-21 11:20 | disposition home or self-care (01) ==
LOC: SED 17:21 → STU 03-20 12:20
PROVIDERS: ADMIT Specialist; ATTEND Specialist
DX: S00.93XA Contusion of unspecified part of head, initial encounter (principal); Z20.822 Contact with and (suspected) exposure to COVID-19; F10.129 Alcohol abuse with intoxication, unspecified; R53.1 Weakness; W19.XXXA Unspecified fall, initial encounter; Y93.89 Activity, other specified; Y92.89 Other specified places as the place of occurrence of the external cause; Z99.3 Dependence on wheelchair
CPT/HCPCS: 80053; 82009; 82140; 82150; 83690; 85025; 85610; 36415 ×2; 70450; 72125; 76376; 99285; 83605; 96365; 96366; 96375; 96376 ×2; 96368; 87426; G0482; J3490; J2060 ×2; J3475; J3411; J7030; G0378 ×2